=== PATIENT | male | born 1980 | race Hispanic/Latino ===

== ENCOUNTER 2018-10-05 10:26 | Emergency (ER) | payer OTHER ==
[~2018-10-05] VITALS: Ht 167.6 cm; Wt 90.0 kg
[2018-10-05 12:00] VITALS: BP 149/74
== END 2018-10-05 12:00 | disposition home or self-care (01) | DRG 563 ==
LOC: ED 10:26
PROC: 2W3RX1Z Immobilization of Left Lower Leg using Splint (ICD-10-PCS; principal; 2018-10-05)
DX: S82.832A Other fracture of upper and lower end of left fibula, initial encounter for closed fracture (principal); W11.XXXA Fall on and from ladder, initial encounter; Y93.89 Activity, other specified; Y92.74 Orchard as the place of occurrence of the external cause; Y99.0 Civilian activity done for income or pay